=== PATIENT | female | born 1990 | race Two or more races ===

== ENCOUNTER → 2018-03-29 | Outpatient (CLI) | payer OTHER ==
[2018-03-29 16:17] LABS: BASOPHILS % (AUTO) 0.3 % (0.0-2.0); EOSINOPHILS % (AUTO) 0.5 % (1.0-6.0); HEMATOCRIT 33.3 % (36-46); HEMOGLOBIN 11.6 g/dL (12.0-16.0); LYMPHOCYTES # (AUTO) 1.4 K/uL (1.0-4.8); LYMPHOCYTES % (AUTO) 15.3 % (22.0-44.0); MEAN CORPUSCULAR HEMOGLOBIN 32.8 pg (26.0-34.0); MEAN CORPUSCULAR HGB CONC 34.9 G/dL (31.0-37.0); MEAN CORPUSCULAR VOLUME 94 fL (80-100); MONOCYTES # (AUTO) 0.4 K/uL (0.1-1.0); NEUTROPHILS # (AUTO) 7.1 K/uL (1.8-7.7); NEUTROPHILS % (AUTO) 78.9 % (40.0-70.0); PLATELET COUNT (AUTO) 169 K/uL (150-450); RED BLOOD CELL COUNT(AUTO) 3.55 MIL/uL (4.00-5.20); RED CELL DISTRIBUTION WIDTH 12.4 % (11.5-14.5)
[2018-03-29 22:37] LABS: RAPID PLASMA REAGIN NONREACTIVE (NONREACTIVE); RUBELLA SCREEN (IGG) IMMUNE (IMMUNE)
[2018-03-30 08:06] LABS: HIV 1-2 SCREEN 4TH GEN W/RFLX Non Reactive (Non Reactive)
== END | disposition home or self-care (01) ==
LOC: LABPV 13:03
PROVIDERS: ATTEND Obstetrics & Gynecology Gynecology
DX: Z34.01 Encounter for supervision of normal first pregnancy, first trimester (principal); N39.0 Urinary tract infection, site not specified
CPT/HCPCS: 82947; 86592; 86762; 86803; 86850; 86900; 86901; 87340; 87389; 88142

== ENCOUNTER → 2018-04-15 | Outpatient (CLI) | payer OTHER | END | disposition home or self-care (01) | LOC: LABPV 07:04 | PROVIDERS: ATTEND Obstetrics & Gynecology Gynecology | DX: O24.419 Gestational diabetes mellitus in pregnancy, unspecified control (principal); Z3A.00 Weeks of gestation of pregnancy not specified | CPT/HCPCS: 82951; 82952 ==